=== PATIENT | male | born 1985 | race Hispanic/Latino ===

== ENCOUNTER 2017-09-22 06:42 | Emergency (ER) | payer OTHER ==
[2017-09-22] MEDS ORDERED: Ibuprofen 200 MG TAB ONE (07:47)
== END 2017-09-22 07:50 | disposition home or self-care (01) ==
LOC: ERS 06:42
DX: S29.012A Strain of muscle and tendon of back wall of thorax, initial encounter (principal); V89.2XXA Person injured in unspecified motor-vehicle accident, traffic, initial encounter
CPT/HCPCS: 99283